=== PATIENT | female | born 1995 | race Hispanic/Latino ===

== ENCOUNTER 2022-06-25 18:49 | Emergency (ER) | payer SELFPAY ==
--- OUTSIDE RECORDS SUMMARY | 2022-06-25 18:58 | XMS REPORT | Continuity of Care Document ---
:1995 Author Organization [facility] t Address [address] [facility] [address] [place] [address] Care Team Providers Name Role Phone GABBIE OLMOS Primary Care Physician Unavailable ERICK LIN Attending Clinician Unavailable GABBIE OLMOS Attending Clinician Unavailable Erick Ramirez Attending Clinician Doctor Unassigned, Woody Attending Clinician Unavailable Lab, Pcp Covid Attending Clinician Unavailable Lab, Adc Fam Pob I Attending Clinician Unavailable Nya Ruggiero Attending Clinician Gabbie Centeno Attending Clinician [phone] Payers Payer Name Policy Type Policy Number Effective Date Expiration Date S sheeba [employer] [place] [place] [id number] 2021 00:00:00 WOMEN Problems Condition Condition Condition Status Onset Resolution Last Treating Co mments Source Name Details Category Date Date Treatment Clinician Date Encounter Encounter Disease Active Uni vers for for 3-30 ity [place] of 00 Medical other other Branch contracept contracept earlene earlene Need for Need for Disease Active Unive rs HPV HPV 3-30 ity of vaccine vaccine 00:00: [place] 00 Medical Branch Class 1 Class 1 Disease Active Univers obesity obesity 3-30 ity of due to due to 00:00: [place] excess excess 00 Medical calories calories Branch with body with body mass index mass index (BMI) of (BMI) of 30.0 to 30.0 to 30.9 in 30.9 in adult, adult, unspecifie unspecifie d whether d whether serious serious comorbidit comorbidit y present y present BMI BMI Disease Active Univers 30.0-30.9, 30.0-30.9, 3-30 it y of adult adult 00:00: [place] 00 Medical Branch IUD IUD Disease Active Univers (intrauter (intrauter 2-28 it y of ine ine 00:00: [place] device) in device) in [address] Branch Over Over Disease Active Univers weight weight 2-13 ity of 00:00: [place] 00 Medical Branch Screening Screening Disease Active Uni vers examinatio examinatio 2-13 it y of n for STD n [place] STD [place] ([place]ually (sexually 00 Medi stephen transmitte transmitte Br anch d disease) d disease) Allergies, Adverse Reactions, Alerts Allergy Allergy Status Severity Reaction(s) Onset Inactive Treating Comm ents Source Name Type Date Date Clinician NO KNOWN Drug Active Univers ALLERGIE Class ity of S [facility] Social History Social Habit Start Date Stop Date Quantity Comments Source History [facility] o f [place] Alcohol Std Drinks Medica l Branch Exposure to Not sure [facility] SARS-CoV-2 (event) Medica l Branch History [facility] o f [place] Alcohol Binge Medical Bra formerly [facility], [facility] Alcohol intake 2021-07-07 2021-07-07 .29 /d [facility] 00:00:00 00:00:00 Medical Branch Alcohol Comment 2021-07-07 2021-07-07 social [facility] 00:00:00 00:00:00 Medical Branch Tobacco use and 2019-05-23 2019-05-23 Never used [facility] exposure 00:00:00 00:00:00 Medical Branch History [facility] 2019-05-23 2019-05-23 2 [place] o f [place] Alcohol Frequency 00:00:00 00:00:00 Medical Branch Tobacco Comment 2019-05-23 2019-05-23 vaping [facility] 00:00:00 00:00:00 Medical Branch Sex Ass[birth year] [facility] 00:00:00 00:00:00 Medical Branch Smoking Status Start Date Stop Date Source Current some day smoker 2019-05-23 00:00:00 [facility] Medications Ordered Filled Start Stop Current Ordering Indication Dosage Frequency Signature Comments Components Source Medication Medication Date Date Medication? Clinician (SIG) Name Name metroNIDAZO 2019-0 Yes [id number] 500mg Take 1 Univers LE 500 mg 2-24 tablet by ity o f tablet 00:00: mouth 2 [place] [address] (two) Medical times [place] daily. Immunizations Ordered Filled Immunization Date Status Comments Angelo e Immunization Name Name HPV9 2021-07-07 Completed [facility] 00:00:00 [facility] HPV9 2019-05-23 Completed [facility] 00:00:00 [facility] Vital Signs Vital Name Observation Time Observation Value Comments Source Systolic blood 2021-07-07 17:56:00 133 mm[Hg[facility] Diastolic blood 2021-07-07 17:56:00 80 mm[Hg] [facility] Heart rate 2021-07-07 17:56:00 80 /min [facility] Body temperature 2021-07-07 17:56:00 36.28 Sally [facility] Respiratory rate 2021-07-07 17:56:00 16 /min [facility] Body height 2021-07-07 17:56:00 160 cm [facility] Body weight 2021-07-07 17:56:00 79.153 kg [facility] BMI 2021-07-07 17:56:00 30.91 kg/m2 [facility] Procedures Procedure Date / Time Performed Performing Clinician Angelo hein GARDASIL 9 (HPV 9V) 2021-07-07 18:09:40 Erick Lin [facility] Encounters Start End Encounter Admission Attending Care Care Encounter Source Date/Time Date/Time Type Type Clinicians Facility Department ID 2022-07-07 2022-07-07 Outpatient Jenna [facility] [id number] Univers 13:15:00 13:15:00 ERICK beth o cruz [facility] 2022-07-07 2022-07-07 Outpatient Jenna [facility] [id number] Univers 13:15:00 13:15:00 ERICK beth o f [facility] 2021-10-22 2021-10-22 Outpatient R AMARILIS [facility] [id number] Univers 13:45:00 13:45:00 GABBIE ity o f [facility] 2021-07-07 2021-07-07 Outpatient R LIN [facility] [id number] Univers 12:45:00 13:50:15 ERICK ity o cruz [facility] 2021-07-07 2021-07-07 [facility] [id number] Univers 12:45:00 13:50:15 Visit Erick R OFFICE MACHINE INSTALLER [id number] [facility] [id number] Riky as MATERNAL [phone] Med ical & CHILD [address] [place] [address] 2021-07-07 2021-07-07 Orders Doctor SHAKILA [id number] Univers 00:00:00 00:00:00 Only Unassigned, FABRICIO [id number] ity of [place] [facility] [id number] Riky as [phone] [address] 2019-11-01 2019-11-01 Letter Lab, Pcp [facility] [id number] Univers 00:00:00 00:00:00 (Out) [facility] Health [id number] it y of [place] [id number] Riky as Professio [phone] Nd dic[address] Office [facility] 2019-10-29 2019-10-29 Laboratory Lab, Adc Fam Pob I [facility] [id number]. [id number] Univers 16:50:30 17:10:30 Only Anene, Nya Health [id number] ity of [place] [id number] Riky as Professio [phone] Nd dic[address] Office [facility] 2019-10-29 2019-10-29 Outpatient R [facility] [id number] Univers 17:00:00 17:00:00 ity of [facility] 2019-07-24 2019-07-24 Telemedici [facility] [id number] Univers 09:55:52 09:56:07 ne Visit Gabbie C OFFICE MACHINE INSTALLER [id number] [facility] [id number] Riky as MATERNAL [phone] [facility] & CHILD [address] [place] [address] 2019-07-24 2019-07-24 Outpatient R TAIWOPE[facility] [id number] Univers 08:30:00 08:30:00 GABBIE ity o f [facility] 2019-07-22 2019-07-22 Outpatient R AKINSIPE, [facility] [id number] Univers 08:30:00 08:30:00 GABBIE ity o f [facility] 2019-07-19 2019-07-19 [facility] [id number] Univers 08:15:00 08:15:00 GABBIE ity o f [facility] 2019-06-07 2019-06-07 Office [facility] [id number] [facility] [place] 08:58:43 09:54:36 Visit Gabbie C OFFICE MACHINE INSTALLER [id number] [facility] [id number] Riky as MATERNAL [phone] [address] 2019-06-07 2019-06-07 Outpatient [facility] [id number] Univers 09:00:00 09:00:00 GABBIE ity o f [facility] 2019-06-07 2019-06-07 Telephone [facility] [id number] Univers 00:00:00 00:00:00 Gabbie C OFFICE MACHINE INSTALLER [id number] [facility] [id number] Riky as MATERNAL [phone] [facility] & CHILD [address] [place] [address] 2019-06-07 2019-06-07 Orders Doctor JHAVERI [id number] Univers 00:00:00 00:00:00 Only Unassigned, FABRICIO [id number] ity of [place] [facility] [id number] Riky as [phone] [facility] 009 Branch 2019-06-03 2019-06-03 Telephone [facility] [id number] Univers 00:00:00 00:00:00 Gabbie C OFFICE MACHINE INSTALLER [id number] [facility] [id number] Riky as MATERNAL [phone] [facility] & CHILD [address] [place] [address] 2019-05-23 2019-05-23 Office [facility] [id number] Univers 16:06:38 17:00:45 Visit Gabbie Rodriguez OFFICE MACHINE INSTALLER [id number] [facility] [id number] Riky as MATERNAL [phone] [facility] & CHILD [address] [place] [address] 2019-05-23 2019-05-23 Orders Doctor JHAVERI [id number] Univers 00:00:00 00:00:00 Only Unassigned, FABRICIO [id number] ity of [place] [facility] [id number] Riky as [phone] [place] [address] Branch Results This patient has no known results.
[2022-06-25] MEDS ORDERED: METHYLPREDNISOLONE 125 MG INJ ONE (19:03)
[2022-06-25] MEDS ORDERED: IPRATROPIUM BROM 0.5MG/2.5ML ONE (19:04)
[2022-06-25] MEDS ORDERED: ALBUTEROL 2.5 MG/3 ML NEB SOL ONE (19:04)
--- NOTE | 2022-06-25 20:04 | ER ---
Nurse's Notes [facility] Name: Mery Clark Age: 27 yrs Sex: Female : 1995 Arrival Date: 06/25/2022 Time: 18:50 Bed 2 Private MD: Diagnosis: Unspecified asthma with (acute) exacerbation Presentation: 06/25 18:51 Chief complaint: Patient states: SOB since last night. Slight cough. No fevers. ll1 Coronavirus screen: Client denies travel out of the [place] in the last 14 days. cough unrelated to allergies, difficulty breathing, shortness of breath, Client presents with at least one sign or symptom that may indicate coronavirus-19. Standard/surgical mask placed on the client. Ebola Screen: Patient denies travel to an Ebola-affected area in the 21 days before illness onset. Initial Sepsis Screen: Does the patient meet any 2 criteria? No. Patient's initial sepsis screen is negative. Does the patient have a suspected source of infection? No. Patient's initial sepsis screen is negative. Risk Assessment: Do you want to hurt yourself or someone else? Patient reports no desire to harm self or others. Onset of symptoms was June 24, 2022. 18:51 Method Of Arrival: Ambulatory ll1 18:51 Acuity: PABLO 3 ll1 Triage Assessment: 18:55 General: Appears uncomfortable, Behavior is calm, cooperative, appropriate for age. ll1 Pain: Complains of pain in chest Quality of pain is described as pressure. Respiratory: Reports shortness of breath cough that is Breath sounds with wheezes bilaterally. Historical: - Allergies: 18:52 No Known Allergies; ll1 - PMHx: 18:52 None; ll1 - PSHx: 18:52 None; ll1 - Immunization history:: Client reports having NOT received the Covid vaccine. - Social history:: Smoking status: Reported history of juuling and/or vaping. Patient denies any tobacco usage or history of. Vital Signs: 18:54 BP 126 / 77; Pulse 85; Resp 24; Temp 98.3; Pulse Ox 97% ; Weight 76.2 kg; Height 5 ft. ll1 3 in. ; Pain 5/10; 18:54 Body Mass Index 29.76 (76.20 kg, 160.02 cm) ll1 18:54 Pain Scale: Adult ll1 ED Course: 18:50 Patient arrived in ED. am2 18:50 [facility] kb 18:50 Adan Menjivar MD is Attending Physician. kb 18:52 Triage completed. ll1 18:53 Arm band placed on Patient placed in an exam room, on a stretcher. ll1 19:07 Marlena Mchugh RN is Primary Nurse. ll1 19:26 Vincent Chris DO is Attending Physician. kb Administered Medications: 19:07 Drug: DuoNeb Nebulize (3:1) (2.5 mg - 0.5 mg) 3 ml Route: Nebulizer; ll1 19:07 Drug: MethylPREDNISolone Sodium Succinate IM 125 mg Route: IM; Site: right vastus ll1 lateralis; Outcome: 20:04 Discharge ordered by . ms3 Signatures: Ximena Long FNP-C FNP-Ckb Moreno, Amanda am2 Marlena Mchugh RN RN ll1 Vincent Chris DO DO ms3
--- NOTE | 2022-06-25 20:04 | EDPHYS ---
Physician Documentation [facility] Name: Mery Clark Age: 27 yrs Sex: Female : 1995 Arrival Date: 06/25/2022 Time: 18:50 Bed 2 Private MD: ED Physician Vincent Chris HPI: 06/25 18:54 This 27 yrs old Female presents to ER via Ambulatory with complaints of kb Breathing Difficulty. 18:54 The patient presents to the emergency department with wheezing, Current therapy: None. kb Onset: The symptoms/episode began/occurred last night. Modifying factors: The symptoms are alleviated by nothing, the symptoms are aggravated by nothing. Associated signs and symptoms: The patient has no apparent associated signs or symptoms. Severity of symptoms: At their worst the symptoms were moderate in the emergency department the symptoms are unchanged. The patient has experienced similar episodes in the past, a few times. The patient has not recently seen a physician. Patient reports shortness of breath and wheezing that started last night. States she has not been diagnosed with asthma but has had this several times in the past and her siblings have asthma. Denies any fever, cough, congestion.. Historical: - Allergies: 18:52 No Known Allergies; ll1 - PMHx: 18:52 None; ll1 - PSHx: 18:52 None; ll1 - Immunization history:: Client reports having NOT received the Covid vaccine. - Social history:: Smoking status: Reported history of juuling and/or vaping. Patient denies any tobacco usage or history of. ROS: 18:54 Constitutional: Negative for fever, chills, and weight loss. kb 18:54 Respiratory: Positive for shortness of breath, wheezing. 18:54 All other systems are negative. Exam: 18:54 Constitutional: This is a well developed, well nourished patient who is awake, alert, kb and in no acute distress. Head/Face: Normocephalic, atraumatic. ENT: Moist Mucous membranes Cardiovascular: Regular rate and rhythm with a normal S1 and S2. No gallops, murmurs, or rubs. No pulse deficits. Abdomen/GI: Soft, non-tender. No distention Skin: Warm, dry with normal turgor. Normal color. MS/ Extremity: Pulses equal, no cyanosis. Neurovascular intact. Full, normal range of motion. Neuro: Awake and alert, GCS 15, oriented to person, place, time, and situation. Moves all extremities. Normal gait. 18:54 Respiratory: mild respiratory distress is noted, Respirations: normal, Breath sounds: wheezing: expiratory that is moderate, is heard diffusely. Vital Signs: 18:54 BP 126 / 77; Pulse 85; Resp 24; Temp 98.3; Pulse Ox 97% ; Weight 76.2 kg; Height 5 ft. ll1 3 in. ; Pain 5/10; 18:54 Body Mass Index 29.76 (76.20 kg, 160.02 cm) ll1 18:54 Pain Scale: Adult ll1 MDM: 18:50 Patient medically screened. kb 18:54 Differential diagnosis: asthma, Bronchitis reactive airway disease. Data reviewed: kb vital signs, nurses notes. 18:55 Data interpreted: Pulse oximetry: on room air is 97 %. Interpretation: normal. kb 18:56 Test considered but Not performed: X-ray: Chest x-ray considered but patient is kb nontoxic in appearance pneumonia is not suspected. 19:28 Transition of care: After a detail discussion of the patient's case, care is kb transferred to Vincent Chris DO. Administered Medications: 19:07 Drug: DuoNeb Nebulize (3:1) (2.5 mg - 0.5 mg) 3 ml Route: Nebulizer; ll1 19:07 Drug: MethylPREDNISolone Sodium Succinate IM 125 mg Route: IM; Site: right vastus ll1 lateralis; Disposition Summary: 06/25/22 20:04 Discharge Ordered Location: Home ms3 Condition: Stable ms3 Diagnosis - Unspecified asthma with (acute) exacerbation ms3 Followup: kb - With: Emergency Department - When: As needed - Reason: Worsening of condition Followup: kb - With: Private Physician - When: 2 - 3 days - Reason: Recheck today's complaints, Continuance of care, Re-evaluation by your physician Discharge Instructions: - Discharge Summary Sheet kb - Asthma, Adult, Adon-yt-Tinx kb Forms: - Medication Reconciliation Form ms3 - Thank You Letter ms3 - Antibiotic Education ms3 - Prescription Opioid Use ms3 Prescriptions: - albuterol sulfate 90 mcg/actuation Inhalation HFA Aerosol Inhaler - inhale 2 puff by INHALATION route every 4-6 hours as needed for shortness of kb breath or wheezing; 1 unit; Refills: 0, Product Selection Permitted - Prednisone 20 mg Oral Tablet - take 1 tablet by ORAL route once daily for 5 days; 5 tablet; Refills: 0, kb Product Selection Permitted Signatures: Ximena Long FNP-C FNP-Ckb Lewis, Lynsay RN RN ll1 Vincent Chris DO DO ms3
== END 2022-06-25 20:19 | disposition home or self-care (01) ==
LOC: ER 18:49
DX: J45.901 Unspecified asthma with (acute) exacerbation (principal)
CPT/HCPCS: 94640; 96372; 99284; J2930; J7613; J7644